=== PATIENT | female | born 1980 | race Caucasian/White ===

== ENCOUNTER 2024-07-06 13:38 | Emergency (ER) | payer SELFPAY ==
[2024-07-06 13:40] VITALS: BP 138/102; PULSE 83; RESP 18; TEMP 36.9; O2SAT 99; BMI 42.3
[2024-07-06 13:43] VITALS: BP 138/107; PULSE 81; O2SAT 96
--- NOTE | 2024-07-06 13:53 | US_ITS ---
PROCEDURE INFORMATION: Exam: US , Transvaginal Exam date and time: 07/06/2024 2:16 PM Age: 44 years old Clinical indication: Lmp or gestational age (in weeks): 7w; Antepartum complications; Bleeding; ; Additional info: + test, vaginal bleeding-[facility] pending LABS AND CLINICAL REPORTS: Last menstrual period start date: 05/14/2024 Gestational age (Established): 7 w 4 d Estimated due date (Established): 02/18/2025 TECHNIQUE: Imaging protocol: Real-time transvaginal obstetrical ultrasound of the maternal pelvis with image documentation. Transvaginal imaging was used for better evaluation of the fetus, adnexa, and/or cervix. COMPARISON: No relevant prior studies available. FINDINGS: Gestation: No intrauterine gestation detected. MATERNAL: Uterus: Endometrial stripe thickness 12 mm anteroposterior. Cervix: 7 mm cervical nabothian cyst. Right ovary/adnexa: Right ovary measures 2.7 cm x 2cm x 1.3 cm. Right ovarian volume is 3.7 mL. 7 mm simple appearing right ovarian follicle. No mass. Left ovary/adnexa: Left ovary measures 3.2 cm x 1.7 cm x 1.5 cm. Left ovarian volume is 4.2 mL. No mass. Intraperitoneal space: No free fluid. IMPRESSION: Unable to confirm or exclude a viable gestation or ectopic at this time. Correlation with beta-hCG values and ultrasound followup is recommended.
[2024-07-06 14:00] VITALS: BP 146/98; PULSE 75; O2SAT 100
--- NOTE | 2024-07-06 14:16 | PC.NURSE ---
pt transported to ultrasound.
[2024-07-06 14:23] LABS: Basophils # 0.1 K/mm3 (0-0.2); Basophils % 1.5 % (0.1-2.0); Eosinophils # 0.2 K/mm3 (0.0-0.4); Eosinophils % 3.3 % (0.1-12.0); Hematocrit 41.3 % (37.0-47.0); Hemoglobin 13.3 g/dL (12.2-16.2); Lymphocytes # 1.7 K/mm3 (0.7-4.5); Lymphocytes % 25.5 % (10-50); Mean Corpuscular HGB Conc 32.2 g/dL (31.8-35.4); Mean Corpuscular Hemoglobin 30.6 pg (27.0-31.2); Mean Corpuscular Volume 94.8 fl (81-99); Mean Platelet Volume 7.6 fl (7.4-10.4); Monocytes # 0.3 K/mm3 (0.1-1.0); Monocytes % 4.9 % (1.7-9.3); Neutrophils # 4.3 K/mm3 (1.8-7.8); Neutrophils % 64.8 % (37.0-80.0); Platelet Count 340 K/mm3 (142-424); Red Blood Count 4.36 M/mm3 (4.20-5.40); Red Cell Distribution Width 14.6 % (11.5-17.5); White Blood Count 6.6 K/mm3 (4.8-10.8)
[2024-07-06 14:27] LABS: INR 0.95 (0.9-1.1); Prothrombin Time 10.7 seconds (10.1-12.5)
[2024-07-06 14:30] LABS: Albumin Level 4.4 g/dl (3.5-5.0); Chloride 105 mmol/L (98-107); Sodium 137 mmol/L (136-145)
[2024-07-06 14:32] LABS: Blood Urea Nitrogen 15 mg/dl (7-17); Creatinine Clearance Estimated 102 mL/min (50-200); Estimated Glomerular Filt Rate 92 ml/min (>60); GFR (African American) 111 ML/MIN (>60)
[2024-07-06 14:33] LABS: Alanine Aminotransferase 16 U/L (12-78); Albumin/Globulin Ratio 1.4 (1.1-1.8); Alkaline Phosphatase 74 U/L (38-126); Aspartate Amino Transferase 28 U/L (14-36); Bilirubin,Total 0.7 mg/dl (0.2-1.3); Calcium 9.3 mg/dl (8.4-10.2); Carbon Dioxide 28 mmol/L (22.0-30.0); Globulin 3.1 g/dL (1.3-3.2); Glucose 99 mg/dl (74-100); Total Protein,Serum 7.5 g/dl (6.3-8.2)
--- NOTE | 2024-07-06 14:45 | PC.NURSE ---
pt returned from ultrasound.
--- NOTE | 2024-07-06 15:03 | HMH.EDGENADL ---
Discharge Plan Disposition Patient Disposition: Home, Self-Care Prescriptions Prescriptions: No Action No Known Home Medications Referrals Follow up/Referrals: Annalisa Landers APRN [Primary Care Provider] - See instructions Activity Restrictions/Add. Instructions Additional Instructions/Restrictions: Follow-up with primary care doctor or [facility] over the next 2 to 3 days for repeat beta-hCG test. Please return to the emerged part with any new, concerning, or worsening symptoms. Take Tylenol and ibuprofen as needed for pain. Clinical Impressions Clinical Impression: Vaginal bleeding Instructions Patient Instructions: DI for Vaginal Bleeding Print Language Print Language: [place] Discharge ED Provider: [facility] HPI General Chief complaint: Vaginal Bleeding Stated complaint: approx 4 weeks antepartum, vaginal bleeding Time Seen by Provider: 07/06/24 13:48 Mode of Arrival: Ambulatory Source of Information: Patient Limitations: No Limitations Description of Symptoms (Recalled from ER Triage Doc. by RN): pt presents to er for vaginal bleeding that started about 30 minutes prior to arrival, took 2 positive tests this am and they were positive, also reports cramping in vaginal area that started yesterday, last period was may 2024, has 3 living children and has had 2 miscarriages in the past History of Present Illness HPI narrative: This is a 44-year-old female with no significant past medical history who presents with vaginal bleeding. States that she took a positive home urine test this morning and later developed vaginal bleeding. States that she is having lower abdominal cramping. Denies nausea/vomiting. Reports last menstrual period approximately 1 month ago. Patient is a G6, P3. Related Data Home Medications ?Medication ?Instructions ?Recorded ?Confirmed No Known Home Medications 05/09/23 07/06/24 Allergies Allergy/AdvReac Type Severity Reaction Status Date / Time No Known Allergies Allergy Verified 07/06/24 13:54 [facility] Disclaimer: The information contained in this section may have been updated after the patient was seen, as this information can be updated by other users. Social History Smoking Status: Never smoker alcohol intake: never current occupational status: employed Travel in the last 8 weeks: None ROS Obtained: Yes All systems reviewed & no additional complaints except as documented Physical Exam General General appearance: alert and in no apparent distress Eye Eye exam: Present normal appearance, PERRL and EOMI Respiratory Respiratory exam: Present normal lung sounds bilaterally; Absent respiratory distress Cardiovascular Cardiovascular exam: Present regular rate and normal rhythm Abdominal Exam Abdominal exam: Present soft and distention; Absent tenderness, guarding or rebound Extremities Exam Extremities exam: Present normal inspection Neurological Exam Neurological exam: Present alert and oriented X3 Skin Skin exam: Present warm and dry Medical Decision Making Medical Records Medical records reviewed: Yes I reviewed the patient's medical records. [place] Inquiry Pt receiving controlled substance: No Vital Signs: 07/06/24 13:40 07/06/24 13:43 07/06/24 14:00 Temperature 98.5 F Temperature Source Oral Pulse Rate 81 75 Pulse Rate [Left Radial] 83 Respiratory Rate 18 Blood Pressure 138/107 H 146/98 H Blood Pressure [Right Arm] 138/102 H Blood Pressure Mean [Right Arm] 114 Blood Pressure Source [Right Arm] Automatic Cuff Blood Pressure Position [Right Arm] Sitting 02 Sat by Pulse Oximetry 99 96 100 Oxygen Delivery Method Room Air Room Air Room Air Lab Data Lab Results 07/06/24 13:49: WBC 6.6, RBC 4.36, Hgb 13.3, Hct 41.3, MCV 94.8, MCH 30.6, MCHC 32.2, RDW 14.6, Plt Count 340, MPV 7.6, Neut % (Auto) 64.8, Lymph % (Auto) 25.5, [place] % (Auto) 4.9, Eos % (Auto) 3.3, B
[2024-07-06 15:09] LABS: HCG,Quantitative < 2 mIU/ml (0-5.42)
[2024-07-06 15:59] VITALS: BP 130/74; PULSE 73; RESP 18; TEMP 36.7; O2SAT 100
== END 2024-07-06 16:02 | disposition home or self-care (01) ==
PROVIDERS: Emergency Provider Student in an Organized Health Care Education/Training Program; PCP Nurse Practitioner Family
DX: N93.9 Abnormal uterine and vaginal bleeding, unspecified (principal)
CPT/HCPCS: 76830; 80053; 84702; 85025; 85610; 86850; 99284